=== PATIENT | male | born 1945 | race Caucasian/White ===

== ENCOUNTER → 2016-11-11 | Outpatient (CLI) | payer MEDICARE | LOC: CT 10:41 | DX: M54.5 Low back pain (principal); M47.896 Other spondylosis, lumbar region; M51.26 Other intervertebral disc displacement, lumbar region | CPT/HCPCS: 72131 ==

== ENCOUNTER 2020-12-11 04:13 | Emergency (ER) | payer MEDICARE, OTHER ==
[~2020-12-11 04:13] MED LIST: AUGMENTIN 875-1 EACH PO; CARAFATE1 GM/10 ML PO; LEVAQUIN750 MG PO; PROTONIX40 MG PO
[2020-12-11 04:36] LABS: HEMOGLOBIN 14.1 gm/dl (14.0-17.5); RED BLOOD COUNT 4.71 M/UL (4.20-5.50); WHITE BLOOD COUNT 13.5 K/UL (4.5-11.0)
[2020-12-11 05:04] LABS: BUN/CREATININE RATIO 15 (0-10)
== END 2020-12-11 10:45 | disposition home or self-care (01) ==
LOC: ER1 04:13
DX: N13.2 Hydronephrosis with renal and ureteral calculous obstruction (principal); K21.9 Gastro-esophageal reflux disease without esophagitis; I10 Essential (primary) hypertension; F17.200 Nicotine dependence, unspecified, uncomplicated
CPT/HCPCS: 80053; 81001; 82550; 82553; 83690; 83874; 84484; 85025; 93005; 96374; 96375; 99284; J1885; J2270; J2405; Q9967

== ENCOUNTER 2021-05-08 13:57 | Inpatient (IN) | payer MEDICARE, OTHER ==
[~2021-05-08] VITALS: Ht 170.2 cm; Wt 65.8 kg
[2021-05-08 14:22] LABS: HEMOGLOBIN 11.9 gm/dl (14.0-17.5); RED BLOOD COUNT 3.95 M/UL (4.20-5.50); WHITE BLOOD COUNT 24.7 K/UL (4.5-11.0)
[2021-05-08 15:05] LABS: BUN/CREATININE RATIO 32 (0-10)
[2021-05-08] MEDS ORDERED: GABAPENTIN800 MG PO (16:04)
[2021-05-08] MEDS ORDERED: CLOPIDOGREL75 MG PO (16:05)
[2021-05-08] MEDS ORDERED: SIMVASTATIN20 MG PO (16:05)
[2021-05-08] MEDS ORDERED: LISINOPRIL2.5 MG PO (16:05)
[2021-05-08] MEDS ORDERED: PROAIR HFA8.5 GM INH (16:06)
[2021-05-09 04:02] LABS: HEMOGLOBIN 11.2 gm/dl (14.0-17.5); RED BLOOD COUNT 3.79 M/UL (4.20-5.50); WHITE BLOOD COUNT 24.8 K/UL (4.5-11.0)
[2021-05-09 04:24] LABS: BUN/CREATININE RATIO 31 (0-10)
[2021-05-09 05:45] LABS: ACINETOBACTER BAUMANNII Not Detected (Negative); CANDIDA ALBICANS Not Detected (Negative); CANDIDA KRUSEI Not Detected (Negative); CANDIDA TROPICALIS Not Detected (Negative); ENTEROCOCCUS Not Detected (Negative); ESCHERICHIA COLI Not Detected (Negative); HAEMOPHILUS INFLUENZAE Not Detected (Negative); KLEBSIELLA OXYTOCA Not Detected (Negative); KLEBSIELLA PNEUMONIAE Not Detected (Negative); KPC-CARBAPENEM-RESISTANCE GENE Not Detected (Negative); PROTEUS Not Detected (Negative); PSEUDOMONAS AERUGINOSA Not Detected (Negative); SERRATIA MARCESANS Not Detected (Negative); STAPHYLOCOCCUS Not Detected (Negative); STAPHYLOCOCCUS AUREUS Not Detected (Negative); STREP AGALACTIAE (GROUP B) Not Detected (Negative); STREP PYOGENES (GROUP A) Not Detected (Negative); STREPTOCOCCUS DETECTED (Negative); mecA (METHICILLIN RESIST GENE Not Detected (Negative); vanA/B (VANCOMYCIN RESIST GENE Not Detected (Negative)
[2021-05-10 04:16] LABS: HEMOGLOBIN 11.5 gm/dl (14.0-17.5); RED BLOOD COUNT 3.92 M/UL (4.20-5.50)
[2021-05-10 04:29] LABS: WHITE BLOOD COUNT 17.7 K/UL (4.5-11.0)
[2021-05-10 04:43] LABS: BUN/CREATININE RATIO 25 (0-10)
[2021-05-11 07:54] LABS: HEMOGLOBIN 11.3 gm/dl (14.0-17.5); RED BLOOD COUNT 3.99 M/UL (4.20-5.50); WHITE BLOOD COUNT 16.5 K/UL (4.5-11.0)
[2021-05-11 08:51] LABS: BUN/CREATININE RATIO 25 (0-10)
[2021-05-11] MEDS ORDERED: IPRAT-ALBUT 0.5-3 ML INH (10:36)
[2021-05-11] MEDS ORDERED: LEVOFLOXACIN500 MG PO (10:36)
== END 2021-05-11 16:04 | disposition home or self-care (01) | DRG 871 ==
LOC: ER1 13:57 → MED SURG 4 15:16 → PROG CARE 15:16 → CDU 15:16 → PROG CARE 17:33 → MED SURG 4 05-09 16:24
PROVIDERS: Emergency Medicine; ADMIT Internal Medicine
PROC: 3E033XZ Introduction of Vasopressor into Peripheral Vein, Percutaneous Approach (ICD-10-PCS; principal; 2021-05-08)
PROC: B24BZZZ Ultrasonography of Heart with Aorta (ICD-10-PCS; 2021-05-09)
DX: A41.9 Sepsis, unspecified organism (principal); R65.21 Severe sepsis with septic shock; Z20.822 Contact with and (suspected) exposure to COVID-19; J18.9 Pneumonia, unspecified organism; J96.01 Acute respiratory failure with hypoxia; J44.0 Chronic obstructive pulmonary disease with (acute) lower respiratory infection; N17.9 Acute kidney failure, unspecified; F17.210 Nicotine dependence, cigarettes, uncomplicated; I10 Essential (primary) hypertension; I08.3 Combined rheumatic disorders of mitral, aortic and tricuspid valves; E03.9 Hypothyroidism, unspecified; K21.9 Gastro-esophageal reflux disease without esophagitis; E87.6 Hypokalemia; E78.5 Hyperlipidemia, unspecified; W18.30XA Fall on same level, unspecified, initial encounter; Z83.3 Family history of diabetes mellitus; Z71.6 Tobacco abuse counseling; Z91.81 History of falling; Z98.890 Other specified postprocedural states
CPT/HCPCS: ECHO; 36415; 36600; 71045; 71111; 71250; 80048; 80053; 80202; 82550; 82553; 82803; 82962; 83540; 83550; 83605; 83735; 83874; 83880; 84100; 84132; 84484; 85025; 85027; 86140; 87040; 87077; 87150; 87186; 93005; 93306; 94640; 94664; 94760; 96374; 99285; J0456; J0696; J1650; J2185; J2270; J3370; J7030; J7070; U0002

== ENCOUNTER → 2021-06-23 | Outpatient (CLI) | payer MEDICARE, OTHER ==
[~2021-06-23] MED LIST changes: +CLOPIDOGREL75 MG PO; +GABAPENTIN800 MG PO; +IPRAT-ALBUT 0.5-3 ML INH; +LEVOFLOXACIN500 MG PO; +LISINOPRIL2.5 MG PO; +PROAIR HFA8.5 GM INH; +SIMVASTATIN20 MG PO
== END ==
LOC: EXRD 14:02
DX: J44.9 Chronic obstructive pulmonary disease, unspecified (principal); J84.9 Interstitial pulmonary disease, unspecified; R91.1 Solitary pulmonary nodule
CPT/HCPCS: 71046; 94060; 94729

== ENCOUNTER 2021-09-14 20:24 | Emergency (ER) | payer MEDICARE ==
[2021-09-14 21:37] LABS: HEMOGLOBIN 13.5 gm/dl (14.0-17.5); RED BLOOD COUNT 4.62 M/UL (4.20-5.50)
[2021-09-14 22:10] LABS: BUN/CREATININE RATIO 20 (0-10)
== END 2021-09-14 23:19 | disposition left against medical advice (07) ==
LOC: ER1 20:24
PROVIDERS: Family Medicine
DX: R07.9 Chest pain, unspecified (principal); I10 Essential (primary) hypertension; J44.9 Chronic obstructive pulmonary disease, unspecified; F17.200 Nicotine dependence, unspecified, uncomplicated
CPT/HCPCS: 71045; 80053; 82550; 82553; 83880; 84484; 85025; 85379; 93005; 99283; Q9967

== ENCOUNTER 2022-01-13 19:48 | Emergency (ER) | payer MEDICARE ==
[2022-01-13 20:18] LABS: HEMOGLOBIN 12.6 gm/dl (14.0-17.5); RED BLOOD COUNT 4.2 M/UL (4.20-5.50); WHITE BLOOD COUNT 7.9 K/UL (4.5-11.0)
[2022-01-13 20:35] LABS: BUN/CREATININE RATIO 19 (0-10)
[2022-01-14] MEDS ORDERED: ANTIVERT 12.512.5 MG PO (01:25)
== END 2022-01-14 02:04 | disposition home or self-care (01) ==
LOC: ER1 19:48
PROVIDERS: Family Medicine
DX: R53.1 Weakness (principal); J44.9 Chronic obstructive pulmonary disease, unspecified; I10 Essential (primary) hypertension; E78.00 Pure hypercholesterolemia, unspecified; F17.210 Nicotine dependence, cigarettes, uncomplicated; Z20.822 Contact with and (suspected) exposure to COVID-19
CPT/HCPCS: 0240U; 70450; 71045; 80053; 82550; 82553; 84484; 85025; 93005; 99285